=== PATIENT | female | born 1995 | race African-American/Black ===

== ENCOUNTER 2018-07-22 19:18 | Emergency (ER) | payer OTHER ==
[~2018-07-22] VITALS: Ht 162.6 cm; Wt 44.9 kg
[~2018-07-22 19:18] MED LIST: CIPRO500 MG PO
== END 2018-07-22 21:52 | disposition home or self-care (01) ==
LOC: ER 19:18
DX: R10.2 Pelvic and perineal pain (principal); R07.89 Other chest pain